=== PATIENT | male | born 1975 | race American Indian/Alaskan Native ===

== ENCOUNTER 2019-11-01 09:58 | Emergency (ER) | payer SELFPAY ==
[2019-11-01 10:15] VITALS: BP 128/82
--- NOTE | 2019-11-01 10:30 | Emergency Department Report ---
Chief Complaint: Extremity Injury, Lower Stated Complaint: LFT KNEE PAIN/STIFF Time Seen by Provider: 11/01/19 10:22 - HPI History of Present Illness: a/c l knee pain no calf pain did not follow up with MD took only tylenol at home pmh asthma oa L knee rx none psh none - ROS Review of Systems: l knee pain - Exam Vital Signs: Vital Signs 11/01/19 10:13 Temperature 97.9 F Pulse Rate 66 Respiratory 20 Rate Blood Pressure 128/82 O2 Sat by Pulse 98 Oximetry Physical Exam: no effusion no joint line tenderness distal perfusion normal with dp plus 2 no swelling full rom MSE screening note: Focused history and physical exam performed. Due to findings the following was ordered: Patient discussed with doctor:: MALATHI BLOOM ED Disposition for MSE Clinical Impression: Knee pain Disposition: - TO HOME OR SELFCARE Is pt being admited?: No Does the pt Need Aspirin: No Condition: Stable Instructions: Arthralgia (ED) Additional Instructions: warm/cold compresses rest elevate ibruprofen 800 mg every 8 hours with food for 48 hours--- follow up with pcp/ortho referrals below Referrals: DANNI DUFFY MD [Staff Physician] - 3-5 Days RADHA LIN MD [Staff Physician] - 3-5 Days Forms: Work/School Release Form(ED) Time of Disposition: 10:29
== END 2019-11-01 10:42 | disposition home or self-care (01) ==
LOC: ED 09:58
DX: M25.562 Pain in left knee (principal); J45.909 Unspecified asthma, uncomplicated
CPT/HCPCS: 99282

== ENCOUNTER 2021-12-14 12:19 | Emergency (ER) | payer SELFPAY | END 2021-12-15 13:30 | disposition left against medical advice (07) | LOC: ED 12:19 | DX: R51.9 Headache, unspecified (principal); R09.81 Nasal congestion; Z53.21 Procedure and treatment not carried out due to patient leaving prior to being seen by health care provider ==